=== PATIENT | female | born 1980 | race Caucasian/White ===

== ENCOUNTER 2017-11-30 03:36 | Emergency (ER) | payer OTHER, MEDICAID, SELFPAY ==
[2017-11-30] MEDS: ALBUTEROL 2.5 MG/3 ML NEB (ADULT) INH ×3 (03:46→04:08)
[2017-11-30 03:48] VITALS: BP 107/68; PULSE 107; RESP 20; TEMP 37; O2SAT 100
[2017-11-30 03:59] VITALS: PULSE 88; RESP 16; O2SAT 100
[2017-11-30] MEDS: methylPREDNISolone 125 MG/2 ML VIAL IV (04:03)
[2017-11-30 04:11] VITALS: O2SAT 100
[2017-11-30 04:25] VITALS: PULSE 89; RESP 14; O2SAT 100
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
[2017-11-30 04:58] VITALS: BP 111/73; PULSE 92; RESP 18; O2SAT 100
== END 2017-11-30 04:58 | disposition home or self-care (01) ==
PROVIDERS: Emergency Provider Emergency Medicine; Family Provider Family Medicine; PCP Family Medicine
DX: J45.901 Unspecified asthma with (acute) exacerbation (principal)
CPT/HCPCS: 94150; 94640; 96374; 99282; 99284; J2930; J7613

== ENCOUNTER → 2020-07-23 13:05 | Outpatient (CLI) | payer OTHER, MEDICAID, SELFPAY ==
[2020-07-23 13:44] LABS: COVID19 -Nasal RAPID Negative (Negative)
== END ==
PROVIDERS: Family Provider Family Medicine; PCP Family Medicine; Visit Provider Physician Assistant
DX: J34.89 Other specified disorders of nose and nasal sinuses (principal); Z20.822 Contact with and (suspected) exposure to COVID-19
CPT/HCPCS: 87635

== ENCOUNTER → 2020-08-27 16:42 | Outpatient (CLI) | payer OTHER, MEDICAID, SELFPAY ==
[2020-08-27] MEDS: COVID-19 VACC #1, MRNA(MOD) 100 MCG/0.5 ML VIAL IM (16:46)
== END ==
PROVIDERS: Family Provider Family Medicine; PCP Family Medicine; Visit Provider Internal Medicine
DX: Z23 Encounter for immunization (principal)
CPT/HCPCS: 0011A; 91301

== ENCOUNTER → 2020-09-24 09:48 | Outpatient (CLI) | payer OTHER, MEDICAID, SELFPAY ==
[2020-09-24] MEDS: COVID-19 VACC #2, MRNA(MOD) 100 MCG/0.5 ML VIAL IM (09:54)
== END ==
PROVIDERS: PCP Family Medicine; Visit Provider Internal Medicine
DX: Z23 Encounter for immunization (principal)
CPT/HCPCS: 0012A; 91301

== ENCOUNTER 2021-05-24 13:51 | Emergency (ER) | payer OTHER, MEDICAID, SELFPAY ==
[2021-05-24 14:11] VITALS: BP 122/74; PULSE 90; RESP 22; TEMP 36.4; O2SAT 100
[2021-05-24 18:02] VITALS: BP 140/90; PULSE 90; RESP 16; O2SAT 100
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
[2021-05-24] MEDS: TET,DIPH,PERTUSS(ACELL),VAC/PF 0.5 ML SYRINGE IM (18:26)
== END 2021-05-24 18:35 | disposition home or self-care (01) ==
PROVIDERS: Emergency Provider Emergency Medicine; PCP Family Medicine
DX: S61.411A Laceration without foreign body of right hand, initial encounter (principal); Z87.891 Personal history of nicotine dependence; W26.8XXA Contact with other sharp object(s), not elsewhere classified, initial encounter; Y93.89 Activity, other specified; Z23 Encounter for immunization
CPT/HCPCS: 12001; 90471; 99282; 99283; 90715

== ENCOUNTER → 2021-05-25 16:58 | Outpatient (CLI) | payer OTHER, MEDICAID, SELFPAY ==
[2021-05-25 19:23] LABS: Rubella Antibody IgG 15.2 IU/mL (>15)
[2021-05-26 11:54] LABS: Rubeola Measles IgG 39.1 AU/mL (Immune >16.4)
== END ==
PROVIDERS: PCP Family Medicine; Referring Provider Family Medicine; Visit Provider Family Medicine
DX: Z01.84 Encounter for antibody response examination (principal)
CPT/HCPCS: 36415; 86735; 86762; 86765

== ENCOUNTER 2021-05-26 21:11 | Emergency (ER) | payer OTHER, MEDICAID, SELFPAY ==
[2021-05-26 21:21] VITALS: BP 154/93; PULSE 105; RESP 18; TEMP 36.6; O2SAT 99; BMI 31.3
--- NOTE | 2021-05-26 22:21 | PC.NURSE ---
Pt had a lac to her L hand that was glued and steri stripped two days ago here in the ER. Pt states that she is concerned because today it began to look red and started to itch. Wound appears to be healing well. No redness noted at this time. No fevers or drainage
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
== END 2021-05-26 22:53 | disposition home or self-care (01) ==
PROVIDERS: Emergency Provider Emergency Medicine; PCP Family Medicine
DX: S61.411D Laceration without foreign body of right hand, subsequent encounter (principal); Z87.891 Personal history of nicotine dependence; X58.XXXD Exposure to other specified factors, subsequent encounter
CPT/HCPCS: 99281

== ENCOUNTER 2021-08-23 10:12 | Emergency (ER) | payer OTHER, MEDICAID, SELFPAY ==
[2021-08-23 10:38] VITALS: BP 134/87; PULSE 86; RESP 18; TEMP 36; O2SAT 100; BMI 31.3
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
[2021-08-23] MEDS: diazePAM 5 MG TABLET PO (11:40)
[2021-08-23] MEDS: KETOROLAC 30 MG/ML VIAL IM (11:41)
[2021-08-23 11:50] VITALS: BP 140/94; PULSE 79; RESP 18; O2SAT 99
== END 2021-08-23 11:51 | disposition home or self-care (01) ==
PROVIDERS: Emergency Provider Emergency Medicine; PCP Family Medicine
DX: M54.42 Lumbago with sciatica, left side (principal); Z87.891 Personal history of nicotine dependence
CPT/HCPCS: 96372; 99283; J1885

== ENCOUNTER 2024-12-07 22:17 | Emergency (ER) | payer OTHER, MEDICAID, SELFPAY ==
[2024-12-07 22:22] VITALS: BP 161/87; PULSE 99; RESP 18; TEMP 37.2; O2SAT 97; BMI 31.3
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
--- NOTE | 2024-12-07 22:44 | DI.RAD.S_ITS ---
PROCEDURE: XR KNEE RT 3V INDICATIONS: recent fall TECHNIQUE: 3 views of the knee were acquired. COMPARISON: None. FINDINGS: Bones: No fractures or dislocations. No suspicious bony lesions. Soft tissues: Mild joint effusion. No suspicious soft tissue calcifications. IMPRESSION: No visualized acute fracture or dislocation. However, if clinical concern and/or pain persist, short interval imaging followup in 7-10 days is recommended, as occult injury cannot be definitively excluded. Dictated by: Selene Mcgrath M.D. on 12/07/2024 at 23:15 Approved by: Selene Mcgrath M.D. on 12/07/2024 at 23:16
== END 2024-12-08 | disposition home or self-care (01) ==
PROVIDERS: Emergency Provider Family Medicine; PCP Family Medicine
DX: M25.462 Effusion, left knee (principal); M25.461 Effusion, right knee; W01.0XXA Fall on same level from slipping, tripping and stumbling without subsequent striking against object, initial encounter
CPT/HCPCS: 73562; 99281; 99283